=== PATIENT | female | born 2000 | race Hispanic/Latino ===

== ENCOUNTER 2021-03-28 23:25 | Emergency (ER) | payer MEDICAID ==
[~2021-03-28] VITALS: Ht 165.1 cm; Wt 64.0 kg
[2021-03-29 00:04] VITALS: BP 112/75
[2021-03-29] MEDS ORDERED: DIPH25 PO (00:08)
[2021-03-29] MEDS ORDERED: FAMO-136 PO (00:08)
[2021-03-29] MEDS ORDERED: PRED50TA2 PO (00:08)
[2021-03-29] MEDS ORDERED: FAMOTIDINE 20MG TAB PO ONE (00:15)
[2021-03-29] MEDS ORDERED: DIPHENHYDRAMINE HCL 25 MG CAPSULE PO ONE (00:15)
[2021-03-29] MEDS ORDERED: PREDNISONE 20 MG TABLET PO ONE (00:15)
== END 2021-03-29 00:26 | disposition home or self-care (01) ==
LOC: EDH 23:28
DX: T78.40XA Allergy, unspecified, initial encounter (principal); R21 Rash and other nonspecific skin eruption; X58.XXXA Exposure to other specified factors, initial encounter
CPT/HCPCS: 99284; Q0163